=== PATIENT | male | born 1940 | race Caucasian/White ===

== ENCOUNTER 2023-09-04 14:02 | Inpatient (IN) | payer OTHER, SELFPAY ==
[2023-09-04] VITALS (25 sets, daily range): BP systolic 86–138; BP diastolic 45–76; BMI 27.7
--- NOTE | 2023-09-04 10:25 | ED.GENMED ---
History of Present Illness
General
Chief Complaint: Fever
Source: patient
Time Seen by Provider: 09/04/23 10:17
Travel History
Have you had any contact with someone who has COVID-19?: No
Do you have any symptoms of coronavirus? Fever > 100 degrees, chills, cough, shortness of breath, sore throat, loss of taste or smell, muscle aches, or headache?: Yes
Symptoms:: fever
History of Present Illness
History of Present Illness:
82-year-old male presents to the emergency room for evaluation of fever, chills, generalized weakness and bodyaches. Symptoms began early this morning around 4 AM. At that time the patient awoke from sleep and was experiencing chills and
bodyaches. He took ibuprofen. He again awoke later this morning and went to go to the bathroom. He was weak and fell. He was then able to get up on his own which is something he can typically do quite easily. Family doctor recommended he come
to the emergency room for evaluation. Patient states he exercises on almost a daily basis. He has a history of high blood pressure and high cholesterol. He has had a mild cough. He denies feeling short of breath though he was found to be hypoxic
upon arrival. Tmax at home was 103.
Phy Exam
Physical Exam
Physical Exam:
General: Awake, Alert, Oriented X3. No acute distress. Appears stated age
Vitals: unremarkable
Head: Atraumatic
Eyes: Pupils equal, EOMI
Throat: Airway intact, no exudates, mildly dry mucosa
Neck: Trachea midline
Lungs: Rales/rhonchi noted right lower lung field
Heart: Regular rate, no murmurs
Abd: Soft, Nontender, No pulsatile mass
Neuro: Nonfocal
Skin: Warm, dry, no rash
Extremities: pulses equal b/l, no edema
Course
Orders/Labs/Results
Orders:
Orders
09/04/23 10:22
EKG [Electrocardiogram (*1)] Urgent
Reason for Study: Fatigue / Weakness
EKG- Treatment ONCE
09/04/23 10:23
Cardiac Monitoring- Treatment ONCE
IV Insert/Care/Rem.- Treatment PRN
CR Chest - 2 Views Urgent
Comment:
Reason For Exam: suspected infection
O2 Therapy [RESP] Urgent
Titrate/Wean O2 to maintain O2 sat greater than (%): 93
Special Instructions: TO MAINTAIN CONTINUOUS O2 SATS > OR = 93%
Pulse Ox/cont/shift [RESP] Urgent
Quantity: 1
Special Instructions: CONTINUOUS
09/04/23 10:25
COVID-19 Antigen Urgent
Source: Nasal Swab
Complete Blood Count/With Diff Urgent
Comprehensive Metabolic Panel Urgent
Lactic Acid Q4H
Comment: ON ICE, CANCEL 2ND ORDER IF FIRST LACTIC ACID LEVEL <2
Manual Differential Urgent
Urinalysis Reflex To Culture Urgent
Blood Culture Q30M
RICHARD Source: Blood/Venous
Specimen Description:
Comment: FROM 2 SEPARATE SITES
Influenza A+B Rapid Molecular Urgent
RICHARD Source: Nasal Swab
Specimen Description:
09/04/23 11:36
Blood Culture Q30M
RICHARD Source: Blood/Venous
Specimen Description:
Comment: FROM 2 SEPARATE SITES
09/04/23 12:11
Azithromycin 500 mg/250 ml [Zithromax Infusion] 500 mg in 250 ml IV NOW
CefTRIAXone [Rocephin] 1,000 mg IV NOW STA
09/04/23 12:44
0.9% Sodium Chloride 500 ml [Nss] 500 ml IV BOLUS
09/04/23 12:45
0.9% Sodium Chloride 1000 ml [Nss] 1,000 ml IV 150 mls/hr
09/04/23 13:43
0.9% Sodium Chloride 1000 ml [Nss] 2,400 ml IV NOW STA
09/04/23 13:45
Admit/Transfer Patient As Directed
Co-Sign Provider:
Level of Care: Inpatient admission
Assign to:: ICU
Physician / Group: Monse
Diagnosis: Pneumonia with sepsis
Reason for Hospitalization: Above
Expected length of stay greater than two midnights?: Yes
ELOS- Estimated Length of Stay in days: 2
I certify the patient meets the requirements for IP care: Yes
09/04/23 13:48
Code Status As Directed
Resuscitation Status: Full Code
09/04/23 14:30
Lactic Acid Q4H
Comment: ON ICE, CANCEL 2ND ORDER IF FIRST LACTIC ACID LEVEL <2
Abnormal Lab Results
09/04/23
10:25
WBC 24.5 H 10^3/uL
(4.8-10.8)
RBC 4.46 L 10^6/uL
(4.70-6.10)
MCV 94.2 H fL
(80.0-94.0)
MCH 34.1 H pg
(27.0-31.0)
Abs Neuts (Manual) 22.2 H 10^3/uL
(1.4-6.5)
Band Neutrophils 17 H %
(0-3)
Lymphocytes (Manual) 5 L %
(20-51)
BUN 23 H mg/dl
(9-20)
Creatinine 1.7 H mg/dL
(0.7-1.3)
Glucose 133 H mg/dl
(70-99)
Lactic Acid 2.5 H mmol/L
(0.7-2.0)
Total Bilirubin 1.8 H mg/dl
(0.2-1.3)
09/04/23 10:25
09/04/23 10:25
Vital Signs
Initial and Last Documented VS:
Initial Vital Signs
BP
114/58
09/04/23 10:18
Last Documented Vital Signs
Temp Pulse Resp BP Pulse Ox
98.7 F 79 22 95/52 94
09/04/23 12:03 09/04/23 14:00 09/04/23 14:00 09/04/23 14:00 09/04/23 14:00
*Radiology
Radiology exam reviewed: preliminary read by ED provider (Chest x-ray reviewed by myself: Right lower lobe infiltrate noted)
*Pulse Oximetry
Patient hypoxic: yes
Comment: 90 percent on room air
*EKG
Interpreted by ED Provider?: Yes
Interpretation: normal
Comparison EKG: no comparison EKG present
Heart Rate: 83
Rate: normal
Rhythm: sinus
Hines: normal axis
Interval: normal interval
QRS Pattern: normal QRS
Ischemia: no ischemia
*Genetic Technologist Interpretation
Rate: normal
Interpretation: normal
Rhythm: sinus
*Critical Care Note
Total Time (30-74mins, 75-104mins- exclusive of procedures): Not Applicable
Patient Management
Social determinants of health affecting care: Strong social support
ED Attending Note
-
Portions of this chart may have been created with voice recognition software.� Occasional wrong word or��sound alike� substitutions may have occurred due to the inherent limitations of voice recognition software.
Discharge Plan
Departure
Patient Disposition: Admit
Date of Disposition: 09/04/23
Time of Disposition: 12:11
Admit to: ICU
Presentation/result/management discussed w/ accepting MD/DO: Hospitalist
Condition: Fair
Discharge Problem:
Pneumonia, Hypoxia, Weakness
Interventions
Interventions:
*Risk Screen - Suicide Last Done: 09/04/23 10:38
*General Assessment Last Done: 09/04/23 10:38
*Neglect/Abuse Screening Last Done: 09/04/23 10:38
ED- Neurological Assessment Last Done: 09/04/23 10:40
[2023-09-04 10:36] LABS: Hemoglobin 15.2 g/dL (13.0-18.0); Mean Corp Hgb Conc. 36.2 g/dL (33.0-37.0); Mean Corpuscular Hgb 34.1 pg (27.0-31.0); Mean Corpuscular Volume 94.2 fL (80.0-94.0); Mean Platelet Volume 9.9 fL (7.4-10.4); Platelet Count 172 10^3/uL (130-400); Red Blood Cell Count 4.46 10^6/uL (4.70-6.10); Red Cell Dist. Width 12.5 % (11.5-14.5); White Blood Cell Count 24.5 10^3/uL (4.8-10.8)
[2023-09-04 10:51] LABS: Lactic Acid 2.5 mmol/L (0.7-2.0)
[2023-09-04 10:53] LABS: ALT (SGPT) 29 U/L (0-50); AST (SGOT) 28 U/L (17-59); Albumin 3.9 g/dl (3.5-5.0); Alkaline Phosphatase 74 U/L (38-126); Blood Urea Nitrogen 23 mg/dl (9-20); COVID-19 Antigen Negative (Negative); Carbon Dioxide 26 mmol/L (22-30); Chloride 103 mmol/L (98-107); Estimated Creatinine Clearance 37 ml/min; Glucose 133 mg/dl (70-99); Potassium 4.2 mmol/L (3.5-5.1); Sodium 136 mmol/L (135-145); Total Bilirubin 1.8 mg/dl (0.2-1.3); Total Protein 6.3 g/dl (6.3-8.2); eGFR 39.51
[2023-09-04 11:21] LABS: Absolute Neutrophils -Man Diff 22.2 10^3/uL (1.4-6.5); Band Neutrophils 17 % (0-3); Lymphocytes 5 % (20-51); Monocytes 4 % (2-9); Segmented Neutrophils 74 % (42-75)
[2023-09-04 11:22] LABS: Normal RBC Morphology Yes; Platelets Checked Yes; Total Cells Counted 100
[2023-09-04] MEDS: ROCEPHIN 1000 MG IV (12:20)
[2023-09-04] MEDS: ZITHROMAX INFUSION 250 IV (12:23)
--- NOTE | 2023-09-04 12:44 | PHANOTE ---
09/04/2023, [facility], spoke to pt. to obtain their medication history; used pt.'s [facility] records from 05/24/2023 to confirm their medications; pt. has no recent pharmacy fill data.
--- NOTE | 2023-09-04 13:02 | HPS.HSE ---
Addendum entered and electronically signed by Omari Shea MD 09/04/23 17:27:
Patient seen and examined
Discussed with resident
Discussed with emergency room staff.
Impression:
82 years old male with history of diabetes who presents with fever and chills
Pneumonia right lower lobe, community-acquired
Sepsis (fever, tachycardia, hypotension responding to IV fluids, lactic acidosis)
Hypertension/septic shock responding to IV fluids.
MARIO (secondary to hypotension as well as Diovan)
Type 2 diabetes [id number].
Hypertension.
Plan:
Hypotension responding to IV fluid bolus
Admit to telemetry.
IV antibiotics covering community-acquired pathogens: Ceftriaxone/Zithromax
Follow blood cultures
Continue isotonic IV fluid bolus per sepsis protocol.
Hold antihypertensive regimen.
Hold oral hypoglycemic agents. Basal bolus protocol with serial Accu-Cheks
DVT prophylaxis
Original Note:
Family Physician
-
Family Physician: Phu Jacques
Chief Complaint
-
Fever, Dizziness and nausea -since 4am.
History of Present Illness
Patient reports to have fever, cold and cough 2 weeks ago, home tested negative for COVID, and his fever cold subsided within 5 days. After this episode, patient reports that he started feeling unwell yesterday night, and at 4m he noticed fever-
(home temp 102 F), went to the restroom at 5am and felt dizzy, nauseous. He sat down in the rest room to prevent falling from syncope and called his for help. He reports having intermittent cough with scanty sputum for 2 weeks. Denies chest
pain, SOB, palpitations, swelling of feet, weakness, and Urinary symptoms.
Medical History
Past Medical History
Past Medical History: Reports Other (HTN, DM, and Peripheral Neuropathy)
Additional Past Medical History:
HTN, Pre- Diabetes(on Glimiperide), peripheral neuropathy.
Past Surgical History: Reports Cholecystectomy
Social History
Tobacco: Former Smoker (Quit smoking 40 years ago)
Alcohol: Occasional (one drink, once every 10-15 days(whiskey- 1 glass))
Drug: None
Living: With Family
Employment: Retired
Family History
Family History: Not pertinent
Allergies / Home Medications
Allergies reflects when Allergies were last updated in [facility].
Home Medications with original date entered in [facility]
Allergy/Medication List:
Allergies
Allergy/AdvReac Type Severity Reaction Status Date / Time
No Known Allergies Allergy Unverified 09/04/23 10:21
Home Medications
Lactobac no.2-Bifidobac no.1-S. thermo 112.5 billion cell capsule (Visbiome) 1 cap PO Q48H@0800 09/04/23
Metamucil 1 cap PO DAILYPRN PRN constipation 09/04/23
cholecalciferol (vitamin D3) 1 cap PO DAILY 09/04/23
gabapentin 300 mg capsule 300 mg PO TID 09/04/23
glimepiride 1 mg tablet 1 mg PO DAILY 09/04/23
ibuprofen 200 mg tablet 400 mg PO BIDPRN PRN mild pain 09/04/23
losartan 50 mg tablet 50 mg PO DAILY 09/04/23
qgqskitq-vb-ggjfw 300 mcg-K 60 mcg-lycop 600 mcg-lutein 300 mcg tablet (Centrum Silver Men) 1 tab PO DAILY 09/04/23
omeprazole 20 mg capsule,delayed release 20 mg PO DAILY 09/04/23
Review of Systems
-
History Source: Patient
Constitutional: Reports Fever and Chills
Respiratory: Reports Cough
Cardiac: Reports Other (Dizziness)
Abdomen/GI: Reports No Symptoms
: Reports No Symptoms
Musculoskeletal: Reports No Symptoms
Skin: Reports No Symptoms
Neurological: Reports Dizzy
Endocrine: Reports No Symptoms
Hematologic/Lymphatic: Reports No Symptoms
Psych: Reports No Symptoms
Physical Exam
Vital Signs
Vital Signs
Temp Pulse Resp BP Pulse Ox
98.7 F 81 10 108/52 93
09/04/23 12:03 09/04/23 11:00 09/04/23 11:00 09/04/23 11:00 09/04/23 11:00
Physical Exam
General: Comfortable
HEENT: NormoCephalic, Anicteric and Moist mucous membranes
Respiratory: Other (Right lower lobe crackles.)
Cardiac: S1/S2, Regular Rhythm and Other (No murmur, rubs, and gallops.)
GI: Soft, Non Tender, Non Distended and Normal Bowel Sounds
Musculoskeletal: No Edema (In b/l lower extremities)
Skin: Warm
Neuro: AO x 3 and Nonfocal/grossly intact
Psych: Calm
Laboratory Results
-
09/04/23 10:25
09/04/23 10:25
Laboratory Results
Lactic Acid 2.5 mmol/L (0.7-2.0) H 09/04/23 10:25
Total Bilirubin 1.8 mg/dl (0.2-1.3) H 09/04/23 10:25
AST 28 U/L (17-59) 09/04/23 10:25
ALT 29 U/L (0-50) 09/04/23 10:25
Alkaline Phosphatase 74 U/L (38-126) 09/04/23 10:25
Impression/Plan
-
IMPRESSION:
82 Yo M with PMHx of peripheral neuropathy, HTN and prediabetes presents to the ER, with Fever, Chills, Nausea and Dizziness found to be hypoxic on arrival to the ER, meets SIRS criteria being admitted for Sepsis.
PLAN:
- Sepsis
+ve for hypotension, WBC -24.5, Hypoxia sats -90 on room air, Lactic acid levels- 2.5,
Secondary to Pneumonia Vs bacteremia Vs UTI
Chest X ray - 09/04 - Positive for interstitial pneumonia
urine analysis and Culture pending
Blood cultures(2 draws) - pending
IV fluids - sepsis bolus
Empirical antibiotic coverage - rocephin and zithromax
Trend lactic acid levels
-Interstitial pneumonia
most likely CAP, insp wheeze and crackles in Rt Lower lobe.
Chest X ray - 09/04 - Moderate right lower lobe interstitial pneumonia
There is mild interstitial airway disease at the left lung base which may be pneumonia or subsegmental atelectasis
On empirical antibiotics - Rocephin and Zithromax
-MARIO
Sr cr - 1.7, unknown baseline
Iv hydration,
monitor I & O, weights to assess fluid retention
Hold Losartan to avoid MARIO progression
Trend renal function tests.
-Total bilirubin
Elevated, 1.9 - likely secondary to sepsis.
Monitor Liver function.
-DM
previously on Glimepiride, Hold.
Initiated Insulin basal bolus regimen- low
Trend blood glucose levels.
-HTN
Losartan on Hold,
Currently hypotensive from sepsis
Monitor BP levels- trend
-DVT prophylaxis
On Heparin.
[2023-09-04] MEDS: NSS 500 IV (13:22)
--- NOTE | 2023-09-04 14:27 | CON.INTV ---
Consultation
Consultation Request
Date/Time Consultation Requested: 09-04-23
Date/Time Consultation Performed: 09-04-23
Requesting Provider: Hospitalist
Performing Provider: Dr Duarte
Reason for Consultation: cough
Medical History
-
Chief Complaint: cough
History of Present Illness:
Mr Alvaro Lorenzo Jr is an 82/M adm 09-04 with 6 hr of fever (max at home 103F), chills, weakness, myalgias and cough, took a dose of ibuprofen and return to sleep, woke up this morning and while in the bathroom he felt weak, reached to the toilet and
sat down in the floor, called his who raised him up and took him to the bedroom.
EMS called by , they help him walk to the ambulance waiting in his home driveway.
Reports the he and his were dealing with a 2 wk period of cold symptoms, for which they were taking an OTC homeopathic cold remedy zicam (citrus lozenges with added prescription agents).
At ER, BP 86/45, POx 90% RA, no resp distress, CXR with suspected R basilar infiltrate. ICU consulted for hypotension. At ER, sleeping comfortable, wakes up quickly, can give full history, feeling better now, no fever identified at ER, received 1L
NS, receiving 500 mL extra at time of visit, BP in low 90s now at low 100s with MAP in range 68-71
Past Medical History
Past Medical History: Other (see A&P for PMH/PSH)
Social History
Tobacco: Former Smoker
Alcohol: Occasional
Drug: None
Personal:
Living: With Family
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
Family History
Family History: Reviewed & Not Pertinent
Allergies / Home Medications
Allergies
Allergy/AdvReac Type Severity Reaction Status Date / Time
No Known Allergies Allergy Unverified 09/04/23 10:21
Home Medications
Medication Instructions Recorded Confirmed Last Taken Type
Lactobac no.2-Bifidobac no.1-S. 1 cap PO Q48H@0800 09/04/23 09/04/23 09/02/23 History
thermo 112.5 billion cell capsule
(Visbiome)
Metamucil 1 cap PO DAILYPRN PRN constipation 09/04/23 09/04/23 Unknown History
cholecalciferol (vitamin D3) 1 cap PO DAILY 09/04/23 09/04/23 09/03/23 History
gabapentin 300 mg capsule 300 mg PO TID 09/04/23 09/04/23 09/04/23 History
glimepiride 1 mg tablet 1 mg PO DAILY 09/04/23 09/04/23 09/04/23 History
ibuprofen 200 mg tablet 400 mg PO BIDPRN PRN mild pain 09/04/23 09/04/23 09/04/23 History
losartan 50 mg tablet 50 mg PO DAILY 09/04/23 09/04/23 09/04/23 History
hrsanljn-fq-zabxo 300 mcg-K 60 1 tab PO DAILY 09/04/23 09/04/23 09/03/23 History
mcg-lycop 600 mcg-lutein 300 mcg
tablet (Centrum Silver Men)
omeprazole 20 mg capsule,delayed 20 mg PO DAILY 09/04/23 09/04/23 09/04/23 History
release
Review of Systems
-
History Source: Patient
All other systems: Negative unless noted
Constitutional: Fever and Chills
Respiratory: Cough
Musculoskeletal: Muscle Pain
Neuro: Weakness
Vitals / Labs / Diagnostic Testing
Vital Signs
Temp Pulse Resp BP Pulse Ox
98.7 F 79 22 95/52 94
09/04/23 12:03 09/04/23 14:00 09/04/23 14:00 09/04/23 14:00 09/04/23 14:00
Lab Data
09/04/23 10:25
09/04/23 10:25
Microbiology
09/04/23 10:25 Nasal Swab Influenza Types A & B (DONNA) - Final
Negative for Influenza A & B, NAAT
Negative results must be combined with clinical observations
and patient history.
Nucleic Acid Amplification test (NAAT)performed on the
[employer] NOW platform.
Diagnostic Testing:
Physical Exam
-
HEENT: Normocephalic, Moist Mucous Membranes and Thrush (n)
Cardiovascular: Regular Rhythm, Murmur (n), Peripheral Edema (n), Calf Tenderness (n) and JVD (n)
Respiratory: Rales (subtle at R base), Rhonchi and Non-Labored Respirations
GI: Soft, Non Distended and Non Tender
Neurology: Awake, AO x 3 and No Motor Deficits
Skin: Dry
General: Respiratory Distress (n)
Assessment
-
Assessment:
Mr Alvaro Lorenzo Jr is an 82/M adm 09-04 with 6 hr of fever (max at home 103F), chills, weakness, myalgias and cough, took a dose of ibuprofen and return to sleep, woke up this morning and while in the bathroom he felt weak, reached to the toilet and
sat down in the floor, called his who raised him up and took him to the bedroom. EMS called by , they help him walk to the ambulance waiting in his home driveway. Reports the he and his were dealing with a 2 wk period of cold symptoms,
for which they were taking an OTC homeopathic cold remedy zicam (citrus lozenges with added prescription agents). At ER, BP 86/45, POx 90% RA, no resp distress, CXR with suspected R basilar infiltrate. ICU consulted for hypotension. At ER, sleeping
comfortable, wakes up quickly, can give full history, feeling better now, no fever identified at ER, received 1L NS, receiving 500 mL extra at time of visit, BP in low 90s now at low 100s with MAP in range 68-71
Impression:
Fever at home on DOA 103F, not at ER
Hypotension, responding to IVF challenge at ER
Weakness
Suspected R basilar infiltrate
Leukocytosis with bandemia
Elevated Cr, unknown baseline
Mild lactic acidosis
Trace elevation TB
COVID/flu negative
Recent h/o cold symptoms for last 2 wks [employer] (reportedly COVID negative as outpatient)
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
HTN
HLD
T2DM
Former smoker: 3/4 ppd for 20 y, quit 40 y ago
Plan:
O2 protocol to continue
Currently at 2L, POx 97% at rest
Resp perry comfortable, speaking in full sentences, ate a sandwich at ER with no issue
Trace dry intermittent cough seen at ER
No bronchospastic
Asp precs
Continue empiric atbs, received ceftriaxone/IV azithromycin on adm, continue
PCT not checked, noted ^Cr
Continue IVF challenge, so far responding well
Monitor BP, renal function, UO
Hold anti-HTN meds for now
Hold NSAIDS, has been using ibuprofen at home
Oral intake somewhat decreased recently
Follow mild elevation of LA
Checking blood cxs
Procure sputum culture
Guaifenesin, acapella valve
UA pending, check cx if indicated
CXR PA/lat in AM
At time of visit at ER, stabilizing for IMU vs telem at this time
Pulm will follow if remains at above destinations
D/w Mr Fell
D/w Dr Queen and Monse
Diagnostic tests:
CXR PA/lat 09-04-23, no comparison films, subtle R basilar infiltrate, prominent R>L hilar vessels, lateral view without spine sign
[2023-09-04] MEDS: NSS 2400 ML IV (15:20)
[2023-09-04] MEDS: NSS 1000 IV (16:01)
[2023-09-04 16:27] LABS: Urine Albumin Negative (Neg - Trace); Urine Bilirubin Negative (Negative); Urine Character Clear (Clear); Urine Color Yellow; Urine Glucose Negative (Negative); Urine Ketone Negative (Negative); Urine Leukocyte Negative (Negative); Urine Nitrite Negative (Negative); Urine Occult Blood Negative (Negative); Urine Urobilinogen Negative (Neg - 1+)
[2023-09-04 16:32] LABS: Lactic Acid 2.9 mmol/L (0.7-2.0)
[2023-09-04] MEDS: PROTONIX 40 MG PO (18:29)
[2023-09-04] MEDS: HEPARIN 5000 UNITS SC (18:29)
[2023-09-04] MEDS: NEURONTIN 300 MG PO ×2 (18:29→22:27)
[2023-09-04] MEDS: NOVOLOG FLEXPEN-LOW RESISTANCE SC (18:30)
--- NOTE | 2023-09-04 18:57 | PTCARENOTE ---
pt presents from ED via stretcher. pt is AAO*3, Vss, 2L 96%. no c/o SOB, pain. pt is comfortable. family at bedside updated. pt us oriented to the room. call thomas within the reach. will continue plan of care
[2023-09-04] MEDS: NEURONTIN PO (20:00)
[2023-09-04 21:49] LABS: Glucose - Point of Care 89 mg/dl (70-99)
[2023-09-05] MEDS: TYLENOL 650 MG PO (00:23)
[2023-09-05] MEDS: HEPARIN 5000 UNITS SC ×3 (03:23→17:05)
[2023-09-05 03:27] VITALS: BP 112/63
[2023-09-05 07:00] VITALS: BP 122/54
[2023-09-05 08:20] LABS: % Basophils 0.2 % (0-2); % Eosinophils 0.8 % (0-6); % Immature Granulocytes 0.9 % (0-0.5); % Lymphocytes 10.6 % (20.5-51.1); % Monocytes 7.4 % (1.7-9.3); % Neutrophils 80.1 % (42.2-75.2); Absolute Eosinophils 0.1 10^3/uL (0-0.7); Absolute Immature Granulocytes 0.1 10^3/uL (0-0.05); Absolute Lymphocytes 1.7 10^3/uL (1.2-3.4); Absolute Monocytes 1.2 10^3/uL (0.1-0.6); Absolute Neutrophils 12.7 10^3/uL (1.4-6.5); Hematocrit 37.7 % (39.0-52.0); Hemoglobin 13.1 g/dL (13.0-18.0); Mean Corp Hgb Conc. 34.7 g/dL (33.0-37.0); Mean Corpuscular Hgb 33.8 pg (27.0-31.0); Mean Corpuscular Volume 97.2 fL (80.0-94.0); Mean Platelet Volume 10.2 fL (7.4-10.4); Nucleated Red Blood Cells % 0 % (-); Platelet Count 156 10^3/uL (130-400); Red Blood Cell Count 3.88 10^6/uL (4.70-6.10); White Blood Cell Count 15.8 10^3/uL (4.8-10.8)
[2023-09-05 08:26] LABS: Lactic Acid 0.9 mmol/L (0.7-2.0)
[2023-09-05 08:27] LABS: Glucose - Point of Care 108 mg/dl (70-99)
[2023-09-05] MEDS: VISBIOME 1 CAP PO (09:04)
[2023-09-05] MEDS: PROTONIX 40 MG PO (09:04)
[2023-09-05] MEDS: NOVOLOG FLEXPEN-LOW RESISTANCE SC ×3 (09:04→17:04)
[2023-09-05] MEDS: NEURONTIN 300 MG PO ×3 (09:04→22:17)
[2023-09-05 09:09] LABS: ALT (SGPT) 22 U/L (0-50); AST (SGOT) 21 U/L (17-59); Alkaline Phosphatase 56 U/L (38-126); Blood Urea Nitrogen 25 mg/dl (9-20); Calcium 8.7 mg/dl (8.4-10.2); Carbon Dioxide 25 mmol/L (22-30); Chloride 105 mmol/L (98-107); Estimated Creatinine Clearance 45 ml/min; Glucose 122 mg/dl (70-99); Potassium 3.9 mmol/L (3.5-5.1); Sodium 138 mmol/L (135-145); Total Bilirubin 1.5 mg/dl (0.2-1.3); Total Protein 5.4 g/dl (6.3-8.2); eGFR 49.87
[2023-09-05] MEDS: METAMUCIL, KONSYL 1 PACKET PO (09:14)
[2023-09-05 10:20] LABS: Glycohemoglobin (HgbA1c) 6.7 % (4.0-5.6)
--- NOTE | 2023-09-05 10:37 | W.PN.PUL3 ---
Today's Communication / Plan
-
Abx
Mucinex
prn duonebs
O2
PT/OT
Pain control --> has pain at his xyphoid process - I will order lidocaine patch for now
Assessment
-
Assessment:
Mr Alvaro Lorenzo Jr is an 82/M adm 09-04 with 6 hr of fever (max at home 103F), chills, weakness, myalgias and cough, took a dose of ibuprofen and return to sleep, woke up this morning and while in the bathroom he felt weak, reached to the toilet and
sat down in the floor, called his who raised him up and took him to the bedroom. EMS called by , they help him walk to the ambulance waiting in his home driveway. Reports the he and his were dealing with a 2 wk period of cold symptoms,
for which they were taking an OTC homeopathic cold remedy zicam (citrus lozenges with added prescription agents). At ER, BP 86/45, POx 90% RA, no resp distress, CXR with suspected R basilar infiltrate. ICU consulted for hypotension. At ER, sleeping
comfortable, wakes up quickly, can give full history, feeling better now, no fever identified at ER, received 1L NS, receiving 500 mL extra at time of visit, BP in low 90s now at low 100s with MAP in range 68-71
Impression:
Fever at home on DOA 103F, not at ER
Hypotension thatresolved with IVF
Generalized weakness
RLL CAP
Leukocytosis with bandemia
MARIO (unknown Cr baseline)
Lactic acidosis - resolved
Trace elevation TB
COVID/flu negative
Recent h/o cold symptoms for last 2 wks [employer] (reportedly COVID negative as outpatient)
Xyphoid process pain - likely MSK; EKG without active ischemia
Conditions [employer] MESSAGE [employer]:
HTN
HLD
T2DM
Former smoker: 3/4 ppd for 20 y, quit 40 y ago
Plan:
Continue supplemental O2 to maintain SpO2 >90-94%
Cough medicine
Abx with rocephin/azithro - azithro x 5 days, rocephin x 7 days assuming he remains afebrile for 2 days prior to stopping ABx and is clinically improving
If resting SpO2 <96% then check walking pulse ox prior to discharge
No bronchospastic
Asp precs
Monitor BP, renal function, UO
Hold anti-HTN meds for now - resume as Cr improves (losartan)
Hold NSAIDS, has been using ibuprofen at home
Oral intake somewhat decreased recently
Renally dose all meds/Abx
Follow up blood Cx (collected 09/04 - )
Check sputum culture
Guaifenesin, acapella valve
Replete K>3.5, Mg>1.8, PO4>3
Pain control for his sternal/xyphoid process pain --> I will order lidocaine patch for now
I answered all the patient's questions to his satisfaction.
Pulmonary service will continue to briefly follow along.
Diagnostic tests:
CXR PA/lat 09-04-23, no comparison films, subtle R basilar infiltrate, prominent R>L hilar vessels, lateral view without spine sign
Subjective Data
-
Date of Service:
Date of Service: September 05, 2023
Chief Complaint: Pulmonary Follow Up
Subjective:
Seen this afternoon. He is still feeling SOB but it is better than yesterday. Coughing up small chunks of blood tinged sputum. Has pain in the lower part of his sternum. He is on 2L/min. Denies SS-CP, denies back pain, abd pain, N/V/f/c.
Review of Systems
General: Other (neg unless mentioned above)
Objective Data
Data Reviewed
Vital Signs / I&O / Oxygen:
Vital Signs
Temp Pulse Resp BP Pulse Ox
98.4 F 65 18 122/54 98
09/05/23 07:00 09/05/23 07:00 09/05/23 07:00 09/05/23 07:00 09/05/23 07:00
Intake and Output
09/04/23 09/05/23 09/06/23
06:59 06:59 06:59
Output Total 500 / 500
Balance -500 / -500
SaO2 98
Nasal Cannula flow liters per 2
minute
Physical Exam
General: Comfortable
HEENT: Normocephalic and Anicteric
Cardiovascular: S1-S2 and Peripheral Edema (negative)
Respiratory: Wheeze (negative), Crackles (R-mid lung), Rhonchi (right lower lobe), Accessory Resp Muscle Use (negative) and Stridor (negative)
GI: Soft, Non Distended, Non Tender and Normal Bowel Sounds
Neurology: Awake and Alert
Skin: Warm and Dry
Labs/Micro/Reports
Lab Data
09/05/23 08:00
09/05/23 08:00
Microbiology
09/04/23 10:25 Blood/Venous Blood Culture - Preliminary
No Growth in 24 hours- Final report to follow
09/04/23 10:25 Nasal Swab Influenza Types A & B (DONNA) - Final
Negative for Influenza A & B, NAAT
Negative results must be combined with clinical observations
and patient history.
Nucleic Acid Amplification test (NAAT)performed on the
[employer] platform.
[2023-09-05 11:19] VITALS: BP 144/73
[2023-09-05 11:59] LABS: Glucose - Point of Care 122 mg/dl (70-99)
[2023-09-05] MEDS: STERILE WATER FOR INJECTION 10 ML IV (12:50)
[2023-09-05] MEDS: ZITHROMAX INFUSION 250 IV (12:50)
[2023-09-05] MEDS: ROCEPHIN 1000 MG IV (12:50)
[2023-09-05 13:33] LABS: Troponin I < 0.012 ng/ml
--- NOTE | 2023-09-05 14:34 | W.PN.HOSP.TC ---
Addendum entered and electronically signed by Omari Shea MD 09/05/23 16:40:
Patient seen and examined
Discussed with resident
Discussed with patient's at the bedside
Right lower lobe pneumonia/community-acquired.
Sepsis due to above
Mild hemoptysis.
Atypical chest pain.
Continue antibiotics pending cultures.
Monitor temperature curve.
Follow WBC.
Follow blood cultures.
Attempt to wean off oxygen.
Follow-up chest x-ray on 09/06.
Episode of atypical chest pain mostly epigastric reproducible with cough on palpation.
ECG with no ischemia
Cardiac markers negative.
Monitor closely.
Acute kidney injury improving with IV fluid bolus
Hold losartan
Avoid NSAIDs
Follow BMP
Original Note:
Today's Communication/Plan
-
- Continue IV antibiotics
- Continue Heparin prophylaxis
- Monitor CBC, CMP
- Monitor for SOB and Hypertension
Assessment / Plan
Assessment / Plan
IMPRESSION:
82 Yo M with PMHx of peripheral neuropathy, HTN and prediabetes presents to the ER, with Fever, Chills, Nausea and Dizziness admitted for Sepsis from underlying pneumonia.
New onset chest pain, worsening cough with hemoptysis.
PLAN:
Sepsis - Resolved
Currently hypotensive, WBC -24.5 -improving , 15.4 (09/05) , Hypoxia - resolved, Lactic acidosis - resolved
Secondary to Pneumonia
Chest X ray - 09/04 - Positive for interstitial pneumonia
urine analysis and Culture pending
Blood cultures(2 draws) - pending
IV fluids - sepsis bolus given yesterday.
Empirical antibiotic coverage - rocephin and zithromax
Atypical Chest Pain -
Occasional 2nd degree AV block on Telemetry
EKG shows septal infarct - age unknown,
Troponin level <0.012
Plan follow up with cardiology on outpatient basis
Interstitial pneumonia
Hemoptysis likely secondary to cough from pneumonia, on Heparin prophylaxis for DVT, hence less likely PE.
most likely CAP, insp wheeze and crackles in Rt Lower lobe.
Chest X ray - 09/04�- Moderate right lower lobe interstitial pneumonia
There is mild interstitial airway disease at the left lung base which may be pneumonia or subsegmental atelectasis
On empirical antibiotics - Rocephin and Zithromax
-MARIO
Sr cr - 1.7, unknown baseline
Iv hydration, Sr Cr improving - 1.4(09/05)
monitor I & O, weights to assess fluid retention
Hold Losartan to avoid MARIO progression
Trend renal function tests.
-Total bilirubin
Elevated, 1.9 on admission- likely secondary to sepsis.
Monitor Liver function.
Currently Bilirubin - 1.5
-DM
previously on Glimepiride, Hold.
Initiated Insulin basal bolus regimen- low
Trend blood glucose levels.
-HTN
Losartan on Hold,
Hypotension from sepsis - resolved
Monitor BP levels- trend
-DVT prophylaxis
On Heparin.
Anticipated Discharge: 24 - 48 hours
Subjective/Interval History
-
Date of Service: September 05, 2023
Patient reports to have excessive cough with hemoptysis
Chest Pain( pointing towards epigastric region), sharp, non radiating, 3/10 in intensity started yesterday night and worsening with inspiration.
Denies SOB, calf pain, dizziness, palpitations
Objective Data
-
Labs:
Laboratory Results
09/05/23
08:00
WBC 15.8 H
Hgb 13.1
Hct 37.7 L
Plt Count 156
Sodium 138
Potassium 3.9
Chloride 105
Carbon Dioxide 25
BUN 25 H
Creatinine 1.4 H
Glucose 122 H
Calcium 8.7
Total Bilirubin 1.5 H
AST 21
ALT 22
Alkaline Phosphatase 56
Vital Signs:
Vital Signs
Temp Pulse Resp BP Pulse Ox
97.7 F 66 18 144/73 96
09/05/23 11:19 09/05/23 11:19 09/05/23 11:19 09/05/23 11:19 09/05/23 11:19
I&O
09/04/23 09/05/23 09/06/23
06:59 06:59 06:59
Output Total 500 / 500
Balance -500 / -500
Review of Systems
-
History Source: Patient
Constitutional: Reports Fatigue
Respiratory: Reports Cough, Hemoptysis and Wheezing
Cardiac: Reports Chest Pain
Abdomen/GI: Reports No Symptoms
Genitourinary: Reports No Symptoms
Musculoskeletal: Reports No Symptoms
Skin: Reports No Symptoms
Physical Exam
-
General: No Apparent Distress and Comfortable
HEENT: Normocephalic, Atraumatic and Moist Mucous Membranes
Respiratory: Other (B/l inspiratory wheezing more predominant in the right middle and lower lobes, crackles in the right lower lobe)
Cardiac: Regular Rhythm, S1/S2 and Other (no murmur, rub and gallop)
GI: Soft, Nontender, Nondistended and Normal Bowel Sounds
Skin: Warm
Neuro: AO x 3 and Nonfocal/Grossly Intact
Psych: Calm
[2023-09-05 15:00] VITALS: BP 138/70
[2023-09-05 16:59] LABS: Glucose - Point of Care 102 mg/dl (70-99)
[2023-09-05] MEDS: LIDOCAINE 4% PATCH 1 PATCH TOPICAL (17:06)
--- NOTE | 2023-09-05 17:36 | CM ---
CM following re: d/c planning
Chart reviewed
CM met with the patient at bedside; IA completed
Pt states he & his spouse reside in a 1SH with 1STE
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
Pt has no previous SNF/VN hx, however does have grab bars in the bathroom, spcs, r/w's, a bsc, & shower chair for use as needed
Pt has prescription coverage and rx's are filled at [facility] on [address]
Pt PCP-Dr Phu Jacques
Awaiting PT/OT evals for recommendations r/t to discharge planning
PLAN; CM following for needs
[2023-09-05 19:15] VITALS: BP 138/71
[2023-09-05] MEDS: MUCINEX 600 MG PO (20:37)
[2023-09-05 22:04] LABS: Glucose - Point of Care 94 mg/dl (70-99)
[2023-09-05 23:30] VITALS: BP 132/63
[2023-09-06] VITALS (7 sets, daily range): BP systolic 117–145; BP diastolic 65–83; O2SAT 93–95
[2023-09-06] MEDS: HEPARIN 5000 UNITS SC ×2 (03:08→17:40)
[2023-09-06 07:53] LABS: % Basophils 0.3 % (0-2); % Eosinophils 1.8 % (0-6); % Immature Granulocytes 0.9 % (0-0.5); % Lymphocytes 16.3 % (20.5-51.1); % Monocytes 10.1 % (1.7-9.3); % Neutrophils 70.6 % (42.2-75.2); Absolute Eosinophils 0.2 10^3/uL (0-0.7); Absolute Immature Granulocytes 0.1 10^3/uL (0-0.05); Absolute Lymphocytes 1.6 10^3/uL (1.2-3.4); Absolute Neutrophils 6.7 10^3/uL (1.4-6.5); Hematocrit 39.8 % (39.0-52.0); Hemoglobin 13.5 g/dL (13.0-18.0); Mean Corp Hgb Conc. 33.9 g/dL (33.0-37.0); Mean Corpuscular Hgb 32.8 pg (27.0-31.0); Mean Corpuscular Volume 96.6 fL (80.0-94.0); Mean Platelet Volume 10.3 fL (7.4-10.4); Nucleated Red Blood Cells % 0 % (-); Platelet Count 154 10^3/uL (130-400); Red Blood Cell Count 4.12 10^6/uL (4.70-6.10); Red Cell Dist. Width 12.8 % (11.5-14.5); White Blood Cell Count 9.6 10^3/uL (4.8-10.8)
[2023-09-06 07:56] LABS: Glucose - Point of Care 122 mg/dl (70-99)
[2023-09-06] MEDS: NOVOLOG FLEXPEN-LOW RESISTANCE SC ×2 (08:56→16:55)
[2023-09-06] MEDS: MUCINEX 600 MG PO ×2 (08:56→20:16)
[2023-09-06] MEDS: LIDOCAINE 4% PATCH 1 PATCH TOPICAL (08:56)
[2023-09-06] MEDS: NEURONTIN 300 MG PO ×3 (08:57→21:36)
[2023-09-06] MEDS: PROTONIX 40 MG PO (08:57)
[2023-09-06 09:37] LABS: ALT (SGPT) 21 U/L (0-50); AST (SGOT) 21 U/L (17-59); Albumin 3.3 g/dl (3.5-5.0); Alkaline Phosphatase 59 U/L (38-126); Blood Urea Nitrogen 22 mg/dl (9-20); Calcium 9.3 mg/dl (8.4-10.2); Carbon Dioxide 26 mmol/L (22-30); Chloride 103 mmol/L (98-107); Direct Bilirubin 0.3 mg/dl (0.0-0.4); Estimated Creatinine Clearance 49 ml/min; Glucose 123 mg/dl (70-99); Magnesium 2.1 mg/dl (1.6-2.3); Phosphorus 3.2 mg/dl (2.5-4.5); Potassium 4.2 mmol/L (3.5-5.1); Sodium 139 mmol/L (135-145); Total Bilirubin 1.3 mg/dl (0.2-1.3); Total Protein 5.8 g/dl (6.3-8.2); eGFR 54.51
--- NOTE | 2023-09-06 11:23 | PN.CDI ---
CDI
- -
CDI:
Physician Documentation Request
Admit Date: 09/04/23 14:02
Dear Doctor Monse,
Please review the following and provide your response in the progress notes.
Clinical Indicators:
The diagnosis of septic shock was documented on 09/04 H&P but is not consistently noted in subsequent documentation.
- 09/04 H&P 'Hypertension/septic shock responding to IV fluids'
- 09/05 PN 'Sepsis due to...Right lower lobe pneumonia/community-acquired'
- 'Acute kidney injury'
- 09/04 Systolic BP 80-90's
- 3.9L IVF given
Please clarify the following:
____ - Septic shock was present on admission and is now resolved.
____ - Septic shock was present on admission and is still being monitored, evaluated or treated
____ - Septic shock was ruled out, severe sepsis likely
____ - Other
Use of terms such as suspected, likely, concern for, or probable (associated with a specific diagnosis that is being evaluated, monitored, or treated as if it exists) are acceptable and can be coded in the inpatient setting, when documented at the
time of discharge.
Thank you,
Sulma Dumont RN
CDI Specialist
Please use your independent medical judgment in providing your response.
[2023-09-06 11:40] LABS: Glucose - Point of Care 160 mg/dl (70-99)
[2023-09-06] MEDS: HEPARIN SC (11:50)
[2023-09-06] MEDS: ZITHROMAX INFUSION 250 IV (12:00)
[2023-09-06] MEDS: STERILE WATER FOR INJECTION 10 ML IV (12:01)
[2023-09-06] MEDS: ROCEPHIN 1000 MG IV (12:01)
[2023-09-06] MEDS: FLUSH (NSS) 2 FLUSH IV (12:03)
[2023-09-06] MEDS: NOVOLOG FLEXPEN-LOW RESISTANCE 1 UNITS SC (12:03)
--- NOTE | 2023-09-06 12:58 | W.PN.PUL3 ---
Today's Communication / Plan
-
Abx
Mucinex
prn duonebs
O2
PT/OT
Pain control --> has pain at his xyphoid process - I ordered lidocaine patch which has been helping
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
Repeat CT chest in 4-6 weeks to follow pneumonia to resolution
Outpatient follow up.
Assessment
-
Assessment:
Mr Alvaro Lorenzo Jr is an 82/M adm 09-04 with 6 hr of fever (max at home 103F), chills, weakness, myalgias and cough, took a dose of ibuprofen and return to sleep, woke up this morning and while in the bathroom he felt weak, reached to the toilet and
sat down in the floor, called his who raised him up and took him to the bedroom. EMS called by , they help him walk to the ambulance waiting in his home driveway. Reports the he and his were dealing with a 2 wk period of cold symptoms,
for which they were taking an OTC homeopathic cold remedy zicam (citrus lozenges with added prescription agents). At ER, BP 86/45, POx 90% RA, no resp distress, CXR with suspected R basilar infiltrate. ICU consulted for hypotension. At ER, sleeping
comfortable, wakes up quickly, can give full history, feeling better now, no fever identified at ER, received 1L NS, receiving 500 mL extra at time of visit, BP in low 90s now at low 100s with MAP in range 68-71
Impression:
Fever at home on DOA 103F, not at ER
Hypotension thatresolved with IVF
Generalized weakness
Multifocal CAP involving RUL and RLL
Centrilobular emphysema/?COPD
Leukocytosis with bandemia
MARIO (unknown Cr baseline)
Lactic acidosis - resolved
Trace elevation TB
COVID/flu negative
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
Xyphoid process pain - likely MSK; EKG without active ischemia
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
HTN
HLD
T2DM
Former smoker: 3/4 ppd for 20 y, quit 40 y ago
Plan:
Continue supplemental O2 to maintain SpO2 >90-94%
Antitussants as needed
Abx with rocephin/azithro - azithro x 5 days, rocephin x 7 days assuming he remains afebrile for 2 days prior to stopping ABx and is clinically improving
If resting SpO2 <96% then check walking pulse ox prior to discharge
Not bronchospastic on exam
Asp precs
Monitor BP, renal function, UO
Hold anti-HTN meds for now - resume as Cr improves (losartan)
Hold NSAIDS, has been using ibuprofen at home
Oral intake somewhat decreased recently
Renally dose all meds/Abx
Follow up blood Cx (collected 09/04 - NGTD)
Check sputum culture - usual respiratory kanika
Guaifenesin, acapella valve
Replete K>3.5, Mg>1.8, PO4>3
Pain control for his sternal/xyphoid process pain --> continue lidocaine patch that I ordered on 09/05 which he says is helping
Considering his pneumonia is in his right hemithorax and worse in the RLL, it is prudent to check a swallow evaluation to rule out aspiration
I answered all the patient's questions to his satisfaction.
Pulmonary service will continue to briefly follow along. I will arrange for outpatient office visit and PFTs given his emphysema seen on CT chest. He also needs a repeat CT chest in 4 to 6 weeks to follow pneumonia to resolution.
Diagnostic tests:
CXR PA/lat 09-04-23, no comparison films, subtle R basilar infiltrate, prominent R>L hilar vessels, lateral view without spine sign
CT Chest 09-06-2023:
1. � Negative for pulmonary embolism.
2. � Emphysema. Changes of gravity dependent and hypoaeration atelectasis. In addition to this, small areas of abnormal airspace opacity in the right lower lobe as detailed above. There is also right hilar adenopathy. Together, these findings are
most suspicious for pneumonia. Follow-up to resolution is recommended. As above, there are additional small focal airspace opacities which may be related, these could be further evaluated on follow-up examination.
Subjective Data
-
Date of Service:
Date of Service: September 06, 2023
Chief Complaint: Pulmonary Follow Up
Subjective:
Seen and evaluated today at bedside. Saturating 95% on room air today. He was on 2 L/min nasal cannula overnight and this morning. Usual kanika seen on respiratory culture collected on 09/05. He continues to cough up brown phlegm with blood
specks. He denies chest pain, headache, fevers or chills. He also denies shortness of breath.
Patient has CT chest today showing centrilobular emphysema, 2.5 cm consolidative opacity in the superior aspect of right lower lobe, 8 mm nodular opacity in the right upper lobe with few other nodular opacities scattered between the right upper
lobe/right lower lobe (RLL >RUL) indicative of multifocal pneumonia. There was a pneumatocele in the right middle lobe and in the lingula.
Review of Systems
General: Other (Negative unless mentioned above)
Objective Data
Data Reviewed
Vital Signs / I&O / Oxygen:
Vital Signs
Temp Pulse Resp BP Pulse Ox
99.1 F 65 20 136/77 95
09/06/23 11:16 09/06/23 11:16 09/06/23 11:16 09/06/23 11:16 09/06/23 11:16
Intake and Output
09/05/23 09/06/23 09/07/23
06:59 06:59 06:59
Intake Total 1440 / 1440
Output Total 500 / 500
Balance -500 / -500 1440 / 1440
SaO2 95
Nasal Cannula flow liters per 2
minute
Physical Exam
General: Comfortable
HEENT: Normocephalic and Anicteric
Cardiovascular: S1-S2 and Peripheral Edema (negative)
Respiratory: Wheeze (negative), Crackles (R-mid lung), Rhonchi (right lower lobe), Accessory Resp Muscle Use (negative) and Stridor (negative)
GI: Soft, Non Distended, Non Tender and Normal Bowel Sounds
Neurology: Awake and Alert
Skin: Warm and Dry
Labs/Micro/Reports
Lab Data
09/06/23 07:20
09/06/23 07:20
Microbiology
09/05/23 17:02 Sputum Respiratory Culture - Preliminary
Usual Respiratory Kanika
09/05/23 17:02 Sputum Gram Stain - Preliminary
09/04/23 11:36 Blood/Venous Blood Culture - Preliminary
No Growth in 48 hours- Final report to follow
09/04/23 10:25 Blood/Venous Blood Culture - Preliminary
No Growth in 48 hours- Final report to follow
09/05/23 17:02 Urine Legionella Urinary Antigen - Final
Negative for Legionella pneumophila Serogroup 1 antigen.
A negative result does not rule out the possiblity of
Legionella infection due to other serogroups or species of
Legionella. Clinical correlation is recommended.
09/05/23 17:02 Urine Streptococcus pneumoniae Antigen (M - Final
Negative for Streptococcus pneumoniae antigen.
A negative result does not exclude infection with
Streptococcus pneumoniae. Clinical correlation is
recommended.
09/04/23 10:25 Nasal Swab Influenza Types A & B (DONNA) - Final
Negative for Influenza A & B, NAAT
Negative results must be combined with clinical observations
and patient history.
Nucleic Acid Amplification test (NAAT)performed on the
[employer] platform.
--- NOTE | 2023-09-06 13:54 | W.PN.HOSP.TC ---
Addendum entered and electronically signed by Omari Shea MD 09/06/23 18:57:
Patient seen and examined
Discussed with resident
Discussed with pulmonology
Right-sided pneumonia
CT scan today with mostly lower lobe consolidation with underlying emphysema. Negative for pulmonary embolism
Treated as community-acquired pneumonia with improvement of hypoxia, trending down white count. Blood cultures negative to date.
Given reported local cord dysfunction, there reasonable aspiration risk. Will check speech and swallow consultation. Consider VSE.
Remains with mild hemoptysis, continue quantifying.
Original Note:
Today's Communication/Plan
-
- Continue nebulization and antibiotics
- resume BP medication if BP>140/90
Assessment / Plan
Assessment / Plan
IMPRESSION:
82 Yo M with PMHx of peripheral neuropathy, HTN and prediabetes presents to the ER, with Fever, Chills, Nausea and Dizziness admitted for Sepsis from underlying pneumonia.
New onset chest pain, worsening cough with hemoptysis.
PLAN:
Sepsis - Resolved
hypotension - resolved, leukocytosis with left shift resolved,
Secondary to Pneumonia
Chest X ray - 09/04 - Positive for interstitial pneumonia
urine analysis - negative
Blood cultures(2 draws) - negatives
Discontinued IVF
Empirical antibiotic coverage - Rocephin and Zithromax
Atypical Chest Pain -
Occasional 2nd degree AV block on Telemetry
EKG shows septal infarct - age unknown,
Troponin level <0.012
Plan follow up with cardiology on outpatient basis
Interstitial pneumonia
Hemoptysis likely secondary to cough from pneumonia, on Heparin prophylaxis for DVT, hence less likely PE.
most likely CAP, insp wheeze and crackles in Rt Lower lobe.
Chest X ray - 09/04�- Moderate right lower lobe interstitial pneumonia
There is mild interstitial airway disease at the left lung base which may be pneumonia or subsegmental atelectasis
Chest CT - 09/06 -� Negative for pulmonary embolism. Emphysema. Changes of gravity dependent and hypoaeration atelectasis. In addition to this, small areas of abnormal airspace opacity in the right lower lobe as detailed above. There is also right
hilar adenopathy. Together, these findings are most suspicious for pneumonia. Follow-up to resolution is recommended. As above, there are additional small focal airspace opacities which may be related, these could be further evaluated on follow-up
examination.
On empirical antibiotics - Rocephin and Zithromax
-MARIO - resolved
Sr cr - 1.7- 1.4(09/05) - 1.3 (09/06)
Iv hydration, Sr Cr improving - 1.4(09/05)
monitor I & O, weights to assess fluid retention
Losartan on hold
Trend renal function tests.
Elevated Total bilirubin - resolved
Elevated, 1.9 on admission- likely secondary to sepsis.
Resolved today.
-DM
previously on Glimepiride, Hold.
Initiated Insulin basal bolus regimen- low
Trend blood glucose levels.
-HTN
Losartan on Hold, Consider restarting losartan after RFT testing tomorrow.
Hypotension from sepsis - resolved
Monitor BP levels- trend
PT/OT
-DVT prophylaxis
On Heparin.
Anticipated Discharge: 24 - 48 hours
Subjective/Interval History
-
Date of Service: September 06, 2023
patient reports to have hemoptysis
Feeling much stronger and better today
On room oxygen
Objective Data
-
Labs:
Laboratory Results
09/06/23
07:20
WBC 9.6
Hgb 13.5
Hct 39.8
Plt Count 154
Sodium 139
Potassium 4.2
Chloride 103
Carbon Dioxide 26
BUN 22 H
Creatinine 1.3
Glucose 123 H
Calcium 9.3
Total Bilirubin 1.3
AST 21
ALT 21
Alkaline Phosphatase 59
Vital Signs:
Vital Signs
Temp Pulse Resp BP Pulse Ox
99.1 F 65 20 136/77 95
09/06/23 11:16 09/06/23 11:16 09/06/23 11:16 09/06/23 11:16 09/06/23 11:16
I&O
09/05/23 09/06/23 09/07/23
06:59 06:59 06:59
Intake Total 1440 / 1440
Output Total 500 / 500
Balance -500 / -500 1440 / 1440
Review of Systems
-
History Source: Patient
Respiratory: Reports Cough and Hemoptysis
Cardiac: Reports No Symptoms
Abdomen/GI: Reports No Symptoms
Genitourinary: Reports No Symptoms
Musculoskeletal: Reports No Symptoms
Skin: Reports No Symptoms
Physical Exam
-
General: No Apparent Distress and Comfortable
HEENT: Normocephalic, Atraumatic and Moist Mucous Membranes
Respiratory: Other (Rt lower lobe wheezing, crackles present)
Cardiac: Regular Rhythm, S1/S2 and Other (no murmur, rubs, and gallops)
GI: Soft, Nontender, Nondistended and Normal Bowel Sounds
Genito-urinary: No Costovertebral Tender
Musculoskeletal: No Edema
Neuro: AO x 3 and Nonfocal/Grossly Intact
Psych: Calm
[2023-09-06 16:52] LABS: Glucose - Point of Care 101 mg/dl (70-99)
[2023-09-06 21:24] LABS: Glucose - Point of Care 126 mg/dl (70-99)
[2023-09-06] MEDS: SENOKOT 8.59999999999999964 MG PO (21:36)
[2023-09-07] MEDS: HEPARIN 5000 UNITS SC ×2 (03:17→10:35)
[2023-09-07 03:30] VITALS: BP 140/68
[2023-09-07 07:00] VITALS: BP 154/94
[2023-09-07 07:26] LABS: Glucose - Point of Care 140 mg/dl (70-99)
[2023-09-07] MEDS: NEURONTIN 300 MG PO (08:09)
[2023-09-07] MEDS: MUCINEX 600 MG PO (08:09)
[2023-09-07] MEDS: SENOKOT 8.59999999999999964 MG PO (08:09)
[2023-09-07] MEDS: VISBIOME 1 CAP PO (08:09)
[2023-09-07] MEDS: NOVOLOG FLEXPEN-LOW RESISTANCE SC ×2 (08:09→13:07)
[2023-09-07] MEDS: PROTONIX 40 MG PO (08:09)
[2023-09-07] MEDS: LIDOCAINE 4% PATCH 1 PATCH TOPICAL (08:09)
--- NOTE | 2023-09-07 09:20 | PTOTSP ---
SPEECH THERAPY SWALLOW EVALUATION:
Patient presents with oropharyngeal swallow function grossly WFL at this time; exhibiting no overt signs of aspiration during CSE. However, patient is at risk for aspiration given history of 'bowed' vocal cord and abnormal strained/weak vocal
quality. Currently with RLL pneumonia, especially concerning for possible aspiration-related pneumonia. Recommend Videofluoroscopic Swallowing Study to further assess and define swallow physiology. Given patient's intact mental status and ability to
implement aspiration precautions, and current stable respiratory status (breathing comfortably on room air), patient appears safe to continue oral diet until VSE. Recommend Regular texture diet with thin liquids. Medications whole with liquid.
Aspiration precautions including: upright positioning, small single sips and bites, slow rate of intake. Speech therapy to follow and provide further recommendations following results of VSE, and provide continued education regarding aspiration
risks and precautions.
RECOMMEND:
1) Videofluoroscopic Swallowing Study
2) Regular texture diet with thin liquids
3) Medications whole with liquid
4) Aspiration precautions including: upright positioning, small single sips and bites, slow rate of intake
[2023-09-07] MEDS: ZITHROMAX INFUSION 250 IV (10:36)
--- NOTE | 2023-09-07 10:45 | CM ---
Patient seen bedside, reports no new concerns at this time. Patient reports his will provide transportation home. IMM signed, reviewed, placed in patients chart. CM will continue to follow for discharge planning needs.
Plan; home no needs, watch PT/OT evals.
[2023-09-07 13:06] LABS: Glucose - Point of Care 148 mg/dl (70-99)
[2023-09-07] MEDS: ROCEPHIN 1000 MG IV (13:07)
[2023-09-07] MEDS: STERILE WATER FOR INJECTION 10 ML IV (13:08)
--- NOTE | 2023-09-07 14:02 | W.DS.TRANS ---
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
-
Discharge Instructions:
Discharge Diagnosis/Procedures Pneumonia.
Sepsis
COPD
Diet Diabetic, Carb Controlled
Instructions:
Stand-Alone Forms:
Changes to Home Medications: Yes
Discharge Medications:
DC Medications w/original date entered in [employer]
Lactobac no.2-Bifidobac no.1-S. thermo 112.5 billion cell capsule (Visbiome) 1 cap PO Q48H@0800 Supplement 09/04/23
Metamucil 1 cap PO DAILYPRN PRN constipation 09/04/23
cholecalciferol (vitamin D3) 1 cap PO DAILY Supplement 09/04/23
gabapentin 300 mg capsule 300 mg PO TID Neurological Condition 09/04/23
glimepiride 1 mg tablet 1 mg PO DAILY Diabetes 09/04/23
losartan 50 mg tablet 50 mg PO DAILY Blood Pressure 09/04/23
[id number] 300 mcg-K 60 mcg-lycop 600 mcg-lutein 300 mcg tablet (Centrum Silver Men) 1 tab PO DAILY Supplement 09/04/23
omeprazole 20 mg capsule,delayed release 20 mg PO DAILY Gastrointestinal Issue 09/04/23
azithromycin 500 mg tablet (Zithromax) 500 mg PO DAILY 7 days #7 tabs 09/07/23
cefuroxime axetil 500 mg tablet 500 mg PO BID #14 tabs 09/07/23
guaifenesin 600 mg tablet, extended release 12 hr 600 mg PO Q12 #60 tabs 09/07/23
Home Medication Changes
Antibiotics for additional 7 days
Pending Results: No
--- NOTE | 2023-09-07 14:17 | PTOTSP ---
VIDEOFLUOROSCOPIC SWALLOWING STUDY:
Patient presents with grossly intact oral swallow function and mild pharyngeal dysphagia, etiology unknown. Suspect deconditioning related to known vocal cord dysfunction vs. unknown etiology. Pharyngeal swallow impairment characterized by reduced
hyolaryngeal elevation/strength and incomplete epiglottic retroflexion. Trace penetration noted with thin liquid via single and consecutive cup sips, with no additional penetration or aspiration noted. Pharyngeal residue in valleculae and minimally
in pyriform sinus noted following thin, nectar-thick, honey-thick, and pudding textures. Swallow safety appears intact, while swallow efficiency appears impaired. Recommend Regular texture diet with thin liquids. Medications whole with liquid.
Aspiration precautions including: upright positioning; double swallow; small single sips and bites; slow rate of intake. Recommend continued follow up with ENT regarding bowed vocal cord and strained vocal quality. Speech therapy to follow for
education regarding aspiration risks/precautions and swallow strength training.
RECOMMEND:
1) Recommend Regular texture diet with thin liquids
2) Medications whole with liquid
3) Aspiration precautions including: upright positioning; double swallow; small single sips and bites; slow rate of intake
== END 2023-09-07 15:31 | disposition home or self-care (01) | DRG 871 ==
LOC: 4 EAST ACU 14:02
PROVIDERS: Registered Nurse; Student in an Organized Health Care Education/Training Program; ADMITTING PHYSICIAN Internal Medicine; CONSULT PHYSICIAN Internal Medicine Pulmonary Disease; EMERGENCY PHYSICIAN Emergency Medicine; FAMILY PHYSICIAN Family Medicine
DX: A41.9 Sepsis, unspecified organism (principal); J18.9 Pneumonia, unspecified organism; N17.9 Acute kidney failure, unspecified; J98.11 Atelectasis; Z11.52 Encounter for screening for COVID-19; E11.42 Type 2 diabetes mellitus with diabetic polyneuropathy; I10 Essential (primary) hypertension; Z87.891 Personal history of nicotine dependence; E78.5 Hyperlipidemia, unspecified
CPT/HCPCS: 71046; 71275; 74230; 80053; 81003; 82248; 82962; 83036; 83605; 83735; 84100; 84484; 85025; 87040; 87070; 87205; 87449; 87502; 87811; 87899; 92610; 92611; 93005; 96361; 96365; 96375; 99285; Q9967

== ENCOUNTER → 2023-10-24 10:08 | Outpatient (REF) | payer OTHER, SELFPAY | LOC: HWRAD 10:08 | PROVIDERS: ATTENDING PHYSICIAN Internal Medicine Critical Care Medicine; FAMILY PHYSICIAN Family Medicine | DX: R06.09 Other forms of dyspnea (principal); Z87.01 Personal history of pneumonia (recurrent) | CPT/HCPCS: 71250 ==

== ENCOUNTER 2024-02-15 15:38 | Emergency (ER) | payer OTHER, SELFPAY ==
[2024-02-15 15:49] VITALS: BP 105/70
--- NOTE | 2024-02-15 17:01 | ED.MUSCINJ ---
HPI-Injury
General
Chief Complaint: Musculo-Skeletal Complaint
Source: patient
Time Seen by Provider: 02/15/24 16:51
History of Present Illness-Injury
Initial Injury comments:
83yoM with a history of hypertension, type 2 diabetes, and neuropathy presenting for evaluation of left ankle pain. Patient was walking and he believes he stubbed his toe on his recliner. He fell backwards on his recliner and injured his left ankle.
He denies any head strike or LOC. Patient's only current complaint is left ankle pain that is primarily located in the lateral ankle. The pain intermittent radiates up to the left lower leg. No paresthesias other than his baseline neuropathy. No
prior injuries to the left ankle.
Phy Exam
Physical Exam
Physical Exam:
Left ankle: No deformity or ecchymosis noted. No open wounds. +Tenderness to lateral malleolus. ROM of ankle intact. 2+ DP pulse and sensation intact.
Injury Course
Orders/Labs/Results
Orders:
Orders
02/15/24 15:51
Ankle, left 3 view CR [CR Ankle - Left Min 3 Views ] Urgent
Comment: hx neuropathy
Reason For Exam: left ankle pain twisted ankle
02/15/24 17:00
CR Leg Tibia/fibula Left 2 Vw Urgent
Comment:
Reason For Exam: injury
MDM/Problems Addressed
Differential Diagnosis Includes:
83yoM here with L ankle pain after an injury. No deformity on exam and LLE is neurovascularly intact. Differential diagnosis includes but is not limited to: sprain, fracture, dislocation
*Critical Care Note
Total Time (30-74mins, 75-104mins- exclusive of procedures): Not Applicable
Update Note
Update Note:
X-rays of L ankle and tib/fib obtained. No acute fracture seen per my interpretation. Air cast given as well as a walker to help with ambulation. Patient able to ambulate well with nursing staff. Supportive care discussed including RICE and PRN
Tylenol. Advised f/u with orthopedics.
ED Attending Note
-
Portions of this chart may have been created with voice recognition software.� Occasional wrong word or��sound alike� substitutions may have occurred due to the inherent limitations of voice recognition software.
Discharge Plan
Departure
Patient Disposition: Home (Routine Discharge)
Date of Disposition: 02/15/24
Time of Disposition: 17:49
Patient with high blood pressure during this ER visit?: No
Discharge Problem:
Left ankle sprain
Instructions: Ankle Sprain ED
Prescriptions:
No Action
losartan 50 mg Tablet
50 mg PO DAILY
glimepiride 1 mg Tablet
1 mg PO DAILY
gabapentin 300 mg Capsule
300 mg PO TID
omeprazole 20 mg Capsule,Delayed Release(Dr/Ec)
20 mg PO DAILY
Visbiome 112.5 billion cell Capsule
1 cap PO Q48H@0800
Centrum Silver Men [id number] mcg Tablet
1 tab PO DAILY
Metamucil
1 cap PO DAILYPRN PRN (Reason: constipation)
cholecalciferol (vitamin D3)
1 cap PO DAILY
guaifenesin 600 mg Tablet Extended Release 12hr
600 mg PO Q12 Qty: 60 0RF
cefuroxime axetil 500 mg tablet
500 mg PO BID Qty: 14 0RF
azithromycin [Zithromax] 500 mg tablet
500 mg PO DAILY 7 Days Qty: 7 0RF
Referrals:
Hemant Gonzalez DO [Active] -
Phu Jacques MD [Family Provider] -
Activity Restrictions/Additional Instructions:
Use walker as needed. Rest, ice, compress, and elevate your ankle. Take Tylenol as needed for pain.
Please follow-up with orthopedics.
Interventions
Interventions:
*Risk Screen - Suicide Last Done: 02/15/24 16:16
*General Assessment Last Done: 02/15/24 16:16
*Neglect/Abuse Screening Last Done: 02/15/24 16:16
*Nursing Disposition Last Done: 02/15/24 18:01
ED-Musculoskeletal Assessment Last Done: 02/15/24 16:15
Discharge Date and Time
Discharge Date/Time: 02/15/24 18:02
Print Language: MARTINIQUAIS
[2024-02-15 17:51] VITALS: BP 120/68
[2024-02-15 18:01] VITALS: BP 120/68
== END 2024-02-15 18:02 | disposition home or self-care (01) ==
LOC: EMR 15:38
PROVIDERS: EMERGENCY PHYSICIAN Emergency Medicine; FAMILY PHYSICIAN Family Medicine
DX: S93.402A Sprain of unspecified ligament of left ankle, initial encounter (principal); X50.1XXA Overexertion from prolonged static or awkward postures, initial encounter; Y93.01 Activity, walking, marching and hiking; I10 Essential (primary) hypertension; E11.40 Type 2 diabetes mellitus with diabetic neuropathy, unspecified
CPT/HCPCS: 99283; 73590; 73610

== ENCOUNTER → 2024-04-25 11:05 | Outpatient (REF) | payer OTHER, SELFPAY | LOC: HWRAD 11:05 | PROVIDERS: ATTENDING PHYSICIAN Internal Medicine Critical Care Medicine; FAMILY PHYSICIAN Family Medicine | DX: Z87.01 Personal history of pneumonia (recurrent) (principal); R06.09 Other forms of dyspnea | CPT/HCPCS: 71250 ==

== ENCOUNTER → 2024-12-13 11:49 | Outpatient (REF) | payer OTHER, SELFPAY | LOC: HWRAD 11:49 | PROVIDERS: ATTENDING PHYSICIAN Family Medicine | DX: M25.571 Pain in right ankle and joints of right foot (principal) | CPT/HCPCS: 73610; 73630 ==

== ENCOUNTER → 2025-03-31 09:14 | Outpatient (REF) | payer OTHER, SELFPAY | LOC: HWRAD 09:14 | PROVIDERS: ATTENDING PHYSICIAN Family Medicine | DX: R05.3 Chronic cough (principal) | CPT/HCPCS: 71046 ==

== ENCOUNTER → 2025-04-14 10:43 | Outpatient (REF) | payer OTHER, SELFPAY | LOC: HWRAD 10:43 | PROVIDERS: ATTENDING PHYSICIAN Family Medicine | DX: R05.3 Chronic cough (principal) | CPT/HCPCS: 71046 ==

== ENCOUNTER → 2025-05-05 13:24 | Outpatient (REF) | payer OTHER, SELFPAY | LOC: HWRAD 13:24 | PROVIDERS: ATTENDING PHYSICIAN Family Medicine | DX: R05.3 Chronic cough (principal) | CPT/HCPCS: 71046 ==

== ENCOUNTER → 2025-05-09 10:58 | Outpatient (REF) | payer OTHER, SELFPAY | LOC: HWRAD 10:58 | PROVIDERS: ATTENDING PHYSICIAN Internal Medicine Critical Care Medicine; FAMILY PHYSICIAN Family Medicine | DX: R93.89 Abnormal findings on diagnostic imaging of other specified body structures (principal) | CPT/HCPCS: 71250 ==